=== PATIENT | female | born 1995 | race Caucasian/White ===

== ENCOUNTER 2019-08-26 09:36 | Outpatient (CLI) | payer MEDICAID ==
[2019-08-26 14:34] LABS: BASOPHILS # (AUTO) 0.1 10^3/uL (0.0-0.1); BASOPHILS % (AUTO) 0.9 %; EOSINOPHILS # (AUTO) 0.1 10^3/uL (0.0-0.7); HGB - HEMOGLOBIN 13.2 g/dL (12.0-16.0); LYMPHOCYTES # (AUTO) 1.4 10^3/uL (1.5-3.5); LYMPHOCYTES % (AUTO) 24.4 %; MEAN CORPUSCULAR HEMOGLOBIN 28.9 pg (27.0-31.0); MEAN CORPUSCULAR HGB CONC 33.2 g/dL (32.0-36.0); MEAN CORPUSCULAR VOLUME 87.1 fL (81.0-99.0); MEAN PLATELET VOLUME 12.2 fL (7.9-10.8); MONOCYTES # (AUTO) 0.4 10^3/uL (0.0-1.0); MONOCYTES % (AUTO) 6.1 %; NEUTROPHILS # (AUTO) 3.9 10^3/uL (1.5-6.6); NEUTROPHILS % (AUTO) 67.4 %; PLT - PLATELET COUNT 225 10^3/uL (130-450); RED BLOOD COUNT 4.57 10^6/uL (4.20-5.40); RED CELL DISTRIBUTION WIDTH 12.2 % (12.0-15.0); WHITE BLOOD COUNT 5.8 x10^3/uL (4.8-10.8)
[2019-08-26 15:05] LABS: ALBUMIN 4.3 g/dL (3.2-5.5); ALBUMIN/GLOBULIN RATIO 1.7 (1.0-2.2); BILIRUBIN,TOTAL 1.8 mg/dL (0.2-1.0); CALCIUM 8.9 mg/dL (8.5-10.3); CREATININE 0.6 mg/dL (0.4-1.0); TOTAL PROTEIN 6.9 g/dL (6.7-8.2)
[2019-08-26 15:16] LABS: THYROID STIMULATING HORMONE 0.87 uIU/mL (0.34-5.60)
[2019-08-26 15:18] LABS: FREE T4 (FREE THYROXINE) 0.98 ng/dL (0.58-1.64)
== END 2019-08-26 23:59 | disposition home or self-care (01) ==
LOC: LAB.WCP 09:36
PROVIDERS: ATTEND Physician Assistant
DX: Z00.00 Encounter for general adult medical examination without abnormal findings (principal); E05.90 Thyrotoxicosis, unspecified without thyrotoxic crisis or storm
CPT/HCPCS: 36415; 80053; 84439; 84443; 85025

== ENCOUNTER 2019-12-13 13:39 | Outpatient (CLI) | payer MEDICAID ==
--- NOTE | 2019-12-15 00:41 | Ultrasound Report ---
Reason: CHRONIC PELVIC PAIN Procedure Date: 12/13/2019 Accession Number: [id number] / [id number] Procedure: US - Pelvic w/Transvaginal CPT Code: Final Report FULL RESULT: EXAM: PELVIC ULTRASOUND EXAM DATE: 12/13/2019 03:30 PM. CLINICAL HISTORY: CHRONIC PELVIC PAIN. COMPARISON: None. TECHNIQUE: Realtime transabdominal pelvic scan performed to identify the uterus and adnexa and as an overview of other pelvic structures, followed by transvaginal scan to provide greater detail of the uterus and adnexa, with static image documentation. FINDINGS: Uterus: 7.1 x 3.1 x 4.0 cm, volume 45.5 cc. Anteverted position. Normal overall size and echotexture. Masses: None. Endometrium: Intrauterine device in place. Normal. Cervix: Unremarkable. Right Ovary: 2.9 x 2.9 x 3.0 cm, volume 13.4 cc. Normal echotexture and blood flow. Left Ovary: 3.1 x 2.6 x 1.8 cm, volume 7.5 cc. Normal echotexture and blood flow. Free Fluid: Small. Other: None. IMPRESSION: 1. Intrauterine device in satisfactory position. 2. Unremarkable sonographic appearance of uterus and ovaries. 3. Small free fluid in the pelvis, nonspecific although probably physiologic. RADIA
== END 2019-12-13 13:40 | disposition home or self-care (01) ==
LOC: DI 13:39
PROVIDERS: ATTEND Physician Assistant Medical
DX: R10.2 Pelvic and perineal pain (principal); G89.29 Other chronic pain; Z97.5 Presence of (intrauterine) contraceptive device
CPT/HCPCS: 76830; 76856

== ENCOUNTER 2020-02-05 07:44 | Outpatient (CLI) | payer MEDICAID ==
[2020-02-05 13:10] LABS: CALCIUM 8.8 mg/dL (8.5-10.3); CREATININE 0.6 mg/dL (0.4-1.0)
== END 2020-02-05 23:59 | disposition home or self-care (01) ==
LOC: LAB.WCP 07:44
PROVIDERS: ATTEND Physician Assistant
DX: Z79.899 Other long term (current) drug therapy (principal)
CPT/HCPCS: 36415; 80048

== ENCOUNTER 2020-02-11 16:01 | Outpatient (CLI) | payer MEDICAID ==
[2020-02-11 18:31] LABS: CALCIUM 9.3 mg/dL (8.5-10.3); CREATININE 0.7 mg/dL (0.4-1.0)
== END 2020-02-11 23:59 | disposition home or self-care (01) ==
LOC: LAB.WCP 16:01
PROVIDERS: ATTEND Physician Assistant
DX: Z79.899 Other long term (current) drug therapy (principal)
CPT/HCPCS: 36415; 80048

== ENCOUNTER 2020-02-25 09:20 | Outpatient (CLI) | payer MEDICAID | END 2020-02-25 23:59 | disposition home or self-care (01) | LOC: COV 09:20 | PROVIDERS: ATTEND Family Medicine | DX: R06.02 Shortness of breath (principal); M79.10 Myalgia, unspecified site; R53.83 Other fatigue; J02.9 Acute pharyngitis, unspecified; R09.81 Nasal congestion; R11.2 Nausea with vomiting, unspecified; Z20.828 Contact with and (suspected) exposure to other viral communicable diseases ==

== ENCOUNTER 2021-09-02 15:00 | Outpatient (CLI) | payer MEDICAID ==
--- NOTE | 2021-09-02 22:14 | XRAY Report ---
PROCEDURE: Ankle 3 View RT INDICATIONS: R ANKLE PX TECHNIQUE: 3 views of the ankle were acquired. COMPARISON: None FINDINGS: Bones: No fractures or dislocations. Ankle mortise is normally aligned. No suspicious bony lesions . Soft tissues: No tibiotalar joint effusion. Achilles tendon appears normal. IMPRESSION: No acute ankle fracture or dislocation. Intact ankle mortise. Mild lateral ankle soft ti ssue swelling. Reviewed by: Edy Barroso MD on 09/02/2021 10:12 PM PST Approved by: Edy Barroso MD on 09/02/2021 10:12 PM PST Station ID: [id number]
== END 2021-09-02 23:59 | disposition home or self-care (01) ==
LOC: DI.N 15:00
PROVIDERS: ATTEND Physician Assistant
DX: M25.571 Pain in right ankle and joints of right foot (principal); R93.6 Abnormal findings on diagnostic imaging of limbs; R93.89 Abnormal findings on diagnostic imaging of other specified body structures

== ENCOUNTER 2022-04-25 07:26 | Outpatient (CLI) | payer MEDICAID ==
[2022-04-25 12:53] LABS: BASOPHILS # (AUTO) 0.1 10^3/uL (0.0-0.1); BASOPHILS % (AUTO) 0.9 %; EOSINOPHILS # (AUTO) 0.1 10^3/uL (0.0-0.7); EOSINOPHILS % (AUTO) 1.6 %; HCT - HEMATOCRIT 43.7 % (37.0-47.0); HGB - HEMOGLOBIN 14.3 g/dL (12.0-16.0); LYMPHOCYTES # (AUTO) 1.4 10^3/uL (1.5-3.5); LYMPHOCYTES % (AUTO) 25.6 %; MEAN CORPUSCULAR HEMOGLOBIN 28.8 pg (27.0-31.0); MEAN CORPUSCULAR HGB CONC 32.7 g/dL (32.0-36.0); MEAN CORPUSCULAR VOLUME 88.1 fL (81.0-99.0); MEAN PLATELET VOLUME 12.3 fL (7.9-10.8); MONOCYTES # (AUTO) 0.4 10^3/uL (0.0-1.0); NEUTROPHILS # (AUTO) 3.6 10^3/uL (1.5-6.6); NEUTROPHILS % (AUTO) 64.7 %; PLT - PLATELET COUNT 248 10^3/uL (130-450); RED BLOOD COUNT 4.96 10^6/uL (4.20-5.40); RED CELL DISTRIBUTION WIDTH 12.3 % (12.0-15.0); WHITE BLOOD COUNT 5.5 x10^3/uL (4.8-10.8)
[2022-04-25 13:10] LABS: ALBUMIN 4.7 g/dL (3.2-5.5); ALBUMIN/GLOBULIN RATIO 1.8 (1.0-2.2); ALKALINE PHOSPHATASE 31 IU/L (42-121); ALT ALANINE AMINOTRANSFERASE 12 IU/L (10-60); AST ASPARTATE AMINOTRANSFERASE 12 IU/L (10-42); BUN - BLOOD UREA NITROGEN 14 mg/dL (6-20); CALCIUM 9.3 mg/dL (8.5-10.3); CARBON DIOXIDE - CO2 28 mmol/L (21-32); CHLORIDE 103 mmol/L (101-111); CHOL/HDL RATIO 2.5 (<4.4); CHOLESTEROL 132 mg/dL; CREATININE 0.8 mg/dL (0.4-1.0); GFR - MDRD 85 (>89); GLUCOSE 95 mg/dL (70-100); HDL CHOLESTEROL 52 mg/dL; POTASSIUM 3.9 mmol/L (3.5-5.0); SODIUM 138 mmol/L (135-145); TOTAL PROTEIN 7.3 g/dL (6.7-8.2); TRIGLYCERIDES 38 mg/dL
[2022-04-25 13:16] LABS: THYROID STIMULATING HORMONE 1.88 uIU/mL (0.34-5.60)
== END 2022-04-25 07:27 | disposition home or self-care (01) ==
LOC: LAB.N 07:26
PROVIDERS: ATTEND Nurse Practitioner Family
DX: Z00.00 Encounter for general adult medical examination without abnormal findings (principal); E55.9 Vitamin D deficiency, unspecified
CPT/HCPCS: 36415; 80053; 80061; 82306; 83721; 84443; 85025

== ENCOUNTER 2022-09-01 18:26 | Emergency (ER) | payer MEDICAID ==
[2022-09-01] MEDS ORDERED: ONDANSETRON ODT 4 MG TABLET TL STA (18:43)
[2022-09-01 18:56] LABS: BASOPHILS # (AUTO) 0.1 10^3/uL (0.0-0.1); BASOPHILS % (AUTO) 0.6 %; EOSINOPHILS # (AUTO) 0.1 10^3/uL (0.0-0.7); EOSINOPHILS % (AUTO) 1.2 %; HCT - HEMATOCRIT 39.1 % (37.0-47.0); HGB - HEMOGLOBIN 12.8 g/dL (12.0-16.0); LYMPHOCYTES % (AUTO) 25.1 %; MEAN CORPUSCULAR HEMOGLOBIN 28.8 pg (27.0-31.0); MEAN CORPUSCULAR HGB CONC 32.7 g/dL (32.0-36.0); MEAN CORPUSCULAR VOLUME 87.9 fL (81.0-99.0); MEAN PLATELET VOLUME 11.1 fL (7.9-10.8); MONOCYTES # (AUTO) 0.4 10^3/uL (0.0-1.0); MONOCYTES % (AUTO) 5.2 %; NEUTROPHILS # (AUTO) 5.3 10^3/uL (1.5-6.6); NEUTROPHILS % (AUTO) 67.6 %; PLT - PLATELET COUNT 219 10^3/uL (130-450); RED BLOOD COUNT 4.45 10^6/uL (4.20-5.40); RED CELL DISTRIBUTION WIDTH 11.9 % (12.0-15.0); WHITE BLOOD COUNT 7.8 x10^3/uL (4.8-10.8)
--- NOTE | 2022-09-01 18:58 | ED Physician Documentation ---
PD HPI ABD PAIN - Stated complaint Stated Complaint: ABD PX - Chief complaint Chief Complaint: Abd Pain - History obtained from History obtained from: Patient - History of Present Illness Timing - onset: Yesterday Timing - details: Gradual onset Quality: Aching, Dull, Pain Location: RLQ Associated symptoms: Nausea. No: Vomiting, Hematemesis, Diarrhea, Constipation, Melena, Hematochezia, Dysuria, Hematuria, Chest pain - Additional information Additional information: Patient is a 27-year-old female who presents to the emergency department with right lower quadrant abdominal pain that started yesterday and is continued today. Went to the walk-in clinic and was sent here for possible appendicitis. Has had nausea but no vomiting. Described as dull and aching. Decreased appetite. Worse with movement, better with remaining still. History of PCOS as well. She has an IUD in place. Negative hCG at the clinic today. Review of Systems Constitutional: denies: Fever, Chills Throat: denies: Sore throat Cardiac: denies: Chest pain / pressure Respiratory: denies: Cough GI: denies: Vomiting, Diarrhea, Hematemesis, Bloody / black stool : denies: Dysuria, Frequency, Hesitancy, Hematuria, Discharge, Now EGA Skin: denies: Rash Musculoskeletal: denies: Neck pain, Back pain Neurologic: denies: Headache PD PAST MEDICAL HISTORY - Past Medical History Past Medical History: Yes : Other (PCOS) Psych: ADD/ADHD - Present Medications Home Medications: Ambulatory Orders Medication Instructions Recorded Confirmed Propranolol [Inderal] 10 mg PO BID PRN 09/01/22 09/01/22 busPIRone [Buspar] 5 mg PO BID 09/01/22 09/01/22 - Allergies Allergies/Adverse Reactions: Allergies Allergy/AdvReac Type Severity Reaction Status Date / Time prednisone Allergy Hallucinati Verified 09/01/22 18:42 ons PD ED PE NORMAL - Vitals Vital signs reviewed: Yes - General General: Alert and oriented X 3, No acute distress - HEENT HEENT: Moist mucous membranes - Neck Neck: Supple, no meningeal sign - Cardiac Cardiac: RRR, No murmur - Respiratory Respiratory: No respiratory distress, Clear bilaterally - Abdomen Abdomen: Soft, Non distended, Other (Tender palpation right lower quadrant at McBurney's point. Positive Rovsing. Positive obturator) - Back Back: No CVA TTP, No spinal TTP - Derm Derm: Warm and dry - Extremities Extremities: No edema, No calf tenderness / cord - Neuro Neuro: Alert and oriented X 3 - Psych Psych: Normal mood, Normal affect Results - Vitals Vitals: Vital Signs - 24 hr 09/01/22 09/01/22 09/01/22 18:38 18:41 20:41 Temperature 36.7 C 36.7 C Heart Rate 64 64 84 Respiratory 16 16 16 Rate Blood Pressure 113/70 113/70 123/78 O2 Saturation 100 100 100 Oxygen O2 Source Room air - Labs Labs: Laboratory Tests 09/01/22 09/01/22 09/01/22 18:50 18:50 19:05 WBC 7.8 RBC 4.45 Hgb 12.8 Hct 39.1 MCV 87.9 MCH 28.8 MCHC 32.7 RDW 11.9 L Plt Count 219 MPV 11.1 H Neut # (Auto) 5.3 Lymph # (Auto) 2.0 [place] # (Auto) 0.4 Eos # (Auto) 0.1 Baso # (Auto) 0.1 Absolute Nucleated RBC 0.00 Nucleated RBC % 0.0 Sodium 137 Potassium 3.6 Chloride 102 Carbon Dioxide 26 Anion Gap 9.0 BUN 9 Creatinine 0.6 Estimated GFR (MDRD) 118 Glucose 104 H Calcium 8.9 Total Bilirubin 1.7 H AST 11 ALT 14 Alkaline Phosphatase 29 L Total Protein 6.9 Albumin 4.1 Globulin 2.8 Albumin/Globulin Ratio 1.5 Lipase 35 Urine Color YELLOW Urine Clarity CLEAR Urine pH 6.0 Ur Specific [place] <=1.005 Urine Protein NEGATIVE Urine Glucose (UA) NEGATIVE Urine Ketones NEGATIVE Urine Occult Blood NEGATIVE Urine Nitrite NEGATIVE Urine Bilirubin NEGATIVE Urine Urobilinogen 0.2 (NORMAL) Ur Leukocyte Esterase NEGATIVE Ur Microscopic Review NOT INDICATED Urine Culture Comments NOT INDICATED Urine HCG, Qual NEGATIVE - Rads (name of study) CT abdomen pelvis Radiology: Final report received, See rad report Pelvic ultrasound Radiology: Final report received, See rad report PD Medical Decision Making - ED course Complexity details: reviewed results, re-evaluated patient, considered differential, d/w patient, d/w fashion consultant sales ED course: 27-year-old female with 2 days of right lower quadrant abdominal pain. Normal CBC. Essentially normal CMP. Normal urinalysis. CT abdomen pelvis reveals normal appendix, but a large right-sided ovarian cyst, 6 x 6 cm. Pelvic ultrasound was ordered. Discussed with Dr. Pugh, gynecology on-call, results reviewed and he will follow-up with the patient in the office. Pain well controlled here. Patient is well-appearing, nontoxic. Afebrile. Patient will be signed out to Dr. Bazzi, awaiting ultrasound results. Plan will be to discharge the patient home if no torsion. Departure - Departure Clinical Impression: Ovarian cyst Qualifiers: Laterality: right Qualified Code(s): N83.201 - Unspecified ovarian cyst, right side Condition: Good Instructions: ED Cyst Ovarian Follow-Up: Luiz Pugh MD [Provider Admit Priv/Credential] - [facility] [Provider Group] - Within 1 week Comments: You have a 6 cm right ovarian cyst. Please follow-up with gynecology for further care. Please call their office for an appointment. I discussed your case with Dr. Pugh, on-call gynecologyjessica.
[2022-09-01 19:22] LABS: ALBUMIN 4.1 g/dL (3.2-5.5); ALBUMIN/GLOBULIN RATIO 1.5 (1.0-2.2); BILIRUBIN,TOTAL 1.7 mg/dL (0.2-1.0); CALCIUM 8.9 mg/dL (8.5-10.3); CREATININE 0.6 mg/dL (0.4-1.0); POTASSIUM 3.6 mmol/L (3.5-5.0); TOTAL PROTEIN 6.9 g/dL (6.7-8.2)
[2022-09-01 19:27] LABS: BILIRUBIN,URINE NEGATIVE (NEGATIVE); GLUCOSE, URINE (UA) NEGATIVE (NEGATIVE); KETONES,URINE (UA) NEGATIVE (NEGATIVE); LEUKOCYTE ESTERASE, URINE NEGATIVE (NEGATIVE); NITRITE,URINE NEGATIVE (NEGATIVE); OCCULT BLOOD,URINE NEGATIVE (NEGATIVE); PROTEIN,URINE NEGATIVE (NEGATIVE); UROBILINOGEN,URINE 0.2 (NORMAL) E.U./dL (NORMAL)
[2022-09-01] MEDS ORDERED: iohexoL-300 100 ML VIAL ONE (19:28)
[2022-09-01 19:29] LABS: CLARITY,URINE CLEAR (CLEAR); HCG UR QUAL NEGATIVE
[2022-09-01] MEDS ORDERED: iohexoL-300 100 ML VIAL IVP ONE (20:14)
--- NOTE | 2022-09-01 20:16 | CT Report ---
PROCEDURE: ABDOMEN/PELVIS W INDICATIONS: RLQ abd pain CONTRAST: 100mL Omni 300 TECHNIQUE: After the administration of IV contrast, 5 mm thick sections acquired from the diaphragms to the symp hysis. 5 mm thick coronal and sagittal reformats were acquired. For radiation dose reduction, the f ollowing was used: automated exposure control, adjustment of mA and/or kV according to patient size. COMPARISON: None. FINDINGS: Image quality: Excellent. ABDOMEN: Lung bases: Lung bases are clear. Heart size is normal. Solid organs: There is hepatomegaly, no discrete hepatic lesion. Spleen is normal in size. Calcified granuloma is noted in spleen. No discrete solid appearing lytic lesion. Gallbladder is within normal limits. Biliary system is non dilated. Pancreas enhances normally. No adrenal nodules. Kidneys de monstrate normal size and enhancement, without hydronephrosis. Peritoneum and bowel: Bowel loops demonstrate normal wall thickness and caliber. No free fluid or a ir. Appendix is visualized and is within normal limits. Nodes and vessels: No retroperitoneal or mesenteric adenopathy by size criteria. Aorta and inferior vena cava are normal in size. Miscellaneous: No ventral hernias. PELVIS: Genitourinary: Bladder wall thickness is normal. Miscellaneous: No inguinal hernias or adenopathy. 5.8 x 5.4 cm cystic structure is noted in right a dnexa. Intrauterine device is noted within its central endometrial location. No gross abnormality is seen in left ovary. Bones: No suspicious bony lesions. No vertebral body compression fractures. IMPRESSION: 1. Normal appendix. No bowel obstruction or abnormal bowel wall thickening. No free fluid of free air . 2. Large cystic structure in right adnexa measures up to 5.8 x 5.4 x 5.8 cm in size concerning for la rge right ovarian cyst. HEATING TECHNICIAN correlation is recommended. If indicated, pelvic ultrasound can be done f or further evaluation. 3. No renal stones or hydronephrosis. No hydroureter. Reviewed by: Edy Barajas MD on 09/01/2022 8:14 PM PST Approved by: Edy Barajas MD on 09/01/2022 8:14 PM PST Station ID: [id number]
[2022-09-01] MEDS ORDERED: oxyCODONE 5 MG TABLET PO STA (20:44)
[2022-09-01] MEDS ORDERED: KETOROLAC 30 MG/ML VIAL IVP STA (20:44)
[2022-09-01 22:06] VITALS: BP 111/61
--- NOTE | 2022-09-01 23:56 | Ultrasound Report ---
PROCEDURE: Pelvic w/Transvag+Doppler Comp INDICATIONS: pelvic pain, R ovarian cyst TECHNIQUE: Real-time scanning was performed of the pelvic organs, with image documentation. Additional endovagi nal scanning was necessary due to incomplete visualization of the adnexal and endometrial structures by transabdominal scanning. Doppler interrogation was performed of the ovaries bilaterally. COMPARISON: Ultrasound pelvis 12/13/2019. Concurrent CT of the abdomen and pelvis.. FINDINGS: No pathologic free abdominal or pelvic fluid. Uterus: Uterus measures 6.8 x 3.5 x 4.8 cm. Endometrium measures up to 0.6 cm. An IUD is demonstrate d in appropriate position within the fundal endometrium. There is a cyst in the right Ovaries: Right ovary measures 7.9 x 6 x 6.7 cm for volume of 166 mL and the left ovary measures 2.7 x 1.8 x 2.2 cm for volume of 5.5 mL. There is an anechoic cyst within the right ovary measuring up to approximately 5.9 x 4.9 x 5.8 cm. No discrete adnexal mass identified . IMPRESSION: 1. Anechoic cyst in the right ovary is nonspecific. Consider short-term and 6 week follow-up to demon strate resolution given its size. 2. Otherwise, no acute sonographic abnormality in the pelvis. Reviewed by: Tito Skinner MD on 09/02/2022 12:05 AM PST Approved by: Tito Skinner MD on 09/02/2022 12:05 AM PST Station ID: [id number]
== END 2022-09-01 22:52 | disposition home or self-care (01) ==
LOC: ED 18:26
DX: N83.201 Unspecified ovarian cyst, right side (principal)
CPT/HCPCS: 36415; 74177; 76830; 76856; 80053; 81003; 81025; 83690; 85025; 93975; 96374; 99283; 99284; A9270; Q0162; Q9967; 81001; 87086

== ENCOUNTER 2022-09-27 08:18 | Day surgery (SDC) | payer MEDICAID ==
[2022-09-27] MEDS ORDERED: GABAPENTIN 400 MG CAPSULE ONE (08:19)
[2022-09-27] MEDS ORDERED: ACETAMINOPHEN 500 MG TABLET PO ONE (08:19)
[2022-09-27] MEDS ORDERED: CELECOXIB 100 MG CAPSULE PO ONE (08:20)
[2022-09-27] MEDS ORDERED: LACTATED RINGERS 1,000 ML IV ONE ×2 (08:48→11:18)
[2022-09-27 09:15] LABS: HCG UR QUAL NEGATIVE
--- NOTE | 2022-09-27 09:19 | ANESTHESIA ---
Pre-Anesthesia VS, & Labs - Diagnosis right ovarian cyst - Procedure laparoscopic ovarian cystectomy Vital Signs: Temp Pulse Resp BP Pulse Ox O2 Flow Rate 37.1 C 61 11 L 114/65 100 09/27/22 08:45 09/27/22 08:45 09/27/22 08:45 09/27/22 08:45 09/27/22 08:45 Height: 5 ft 10 in Weight (kg): 70 kg Body Mass Index: 22.1 BMI Classification: Normal - NPO >8 hours - Is Patient ?: No - Lab Results Current Lab Results: Laboratory Tests 09/27/22 08:41: POC Whole Bld Glucose 85 Lab results reviewed: Yes Home Medications and Allergies Propranolol [Inderal] 10 mg PO BID PRN 09/01/22 busPIRone [Buspar] 5 mg PO BID 09/01/22 Allergies/Adverse Reactions: Allergies Allergy/AdvReac Type Severity Reaction Status Date / Time prednisone Allergy Hallucinati Verified 09/01/22 18:42 ons Anes History & Medical History - Anesthetic History Anesthesia Complications: reports: No previous complications - Medical History Cardiovascular: reports: None Pulmonary: reports: Asthma Gastrointestinal: reports: None Urinary: reports: None Neuro: reports: None Musculoskeletal: reports: None Endocrine/Autoimmune: reports: None Blood Disorders: reports: None Skin: reports: None Smoking Status: Current every day smoker (vapes) Psychosocial: reports: Cannabis (daily) History of Cancer?: No - Surgical History Other Past Surgical History: facial surgery as a child from trauma Exam General: Alert, Oriented x3, Cooperative, No acute distress Dental: TMJ (jaw pops, has not gotten stuck) Mouth Openin Fingerbreadth Neck Mobility: Normal Mallampati classification: I Thyromental Distance: 4-6 cm Mental/Cognitive Status: Alert/Oriented X3, Normal for patient Plan Anesthesia Type: General Consent for Procedure(s) Verified and Reviewed: Yes Code Status: Attempt Resuscitation ASA classification: 2-Mild systemic disease Is this case an emergency?: No
[2022-09-27] MEDS ORDERED: LIDOCAINE MPF 2%-EPI 1:200000 20 ML VIAL ONE (09:22)
[2022-09-27] MEDS ORDERED: BUPIVACAINE 0.5% PF 30 ML VIAL ONE (09:23)
[2022-09-27] MEDS ORDERED: METHYLENE BLUE 0.5% 50 MG/10 ML AMPULE ONE (09:23)
[2022-09-27] MEDS ORDERED: fentaNYL 100 MCG/2 ML VIAL ONE ×2 (09:33→10:27)
[2022-09-27] MEDS ORDERED: MIDAZOLAM 2 MG/2 ML VIAL ONE (09:33)
[2022-09-27] MEDS ORDERED: PROPOFOL 200 MG/20 ML VIAL IVP ONE (09:33)
[2022-09-27] MEDS ORDERED: ROCURONIUM 50 MG/5 ML VIAL ONE ×2 (09:33→10:30)
[2022-09-27] MEDS ORDERED: NALOXONE 0.4 MG/ML VIAL IVP PRN (09:41)
[2022-09-27] MEDS ORDERED: ATROPINE ABBOJECT 1 MG/10 ML SYRINGE IVP PRN (09:41)
[2022-09-27] MEDS ORDERED: MORPHINE 2 MG/ML CARPUJECT IVP PRN (09:41)
[2022-09-27] MEDS ORDERED: fentaNYL 100 MCG/2 ML VIAL IVP PRN (09:41)
[2022-09-27] MEDS ORDERED: ONDANSETRON 4 MG/2 ML VIAL IVP PRN (09:41)
[2022-09-27] MEDS ORDERED: HYDROmorphone 0.5 MG/0.5 ML SYRINGE IVP PRN (09:41)
[2022-09-27] MEDS ORDERED: LACTATED RINGERS 1,000 ML IV SCH (10:00)
[2022-09-27] MEDS ORDERED: LIDOCAINE MPF 2%-EPI 1:200000 20 ML VIAL SUBQ ONE ×2 (10:34)
[2022-09-27] MEDS ORDERED: BUPIVACAINE 0.5% PF 30 ML VIAL SUBQ ONE ×2 (10:34)
[2022-09-27] MEDS ORDERED: GLYCOPYRROLATE 1 MG/5 ML VIAL ONE (11:02)
[2022-09-27] MEDS ORDERED: NEOSTIGMINE 1 MG/1 ML 10 ML MDV ONE (11:02)
--- NOTE | 2022-09-27 11:18 | OPERATIVE REPORT ---
Operative Report - General Procedure Date: 09/27/22 Planned Procedure: Laparoscopic right ovarian cystectomy Pre-Op Diagnosis: Right ovarian cyst Procedure Performed: Laparoscopic right ovarian cystectomy Post Op Diagnosis: Right ovarian cyst - Procedure Note Primary Surgeon: Luiz Pugh MD Secondary Surgeon: Marilu Ingram DO Anesthesia Provider: Iris Hahn Anesthesia Technique: General ET tube Pathology: Right ovarian cyst wall IV Fluids (mL): 1,400 Estimated Blood Loss (mL): 10 Urine Output (mL): 50 Complications: None - Other Other Information/Narrative: Patient was taken to the OR and placed in the dorsal lithotomy position using great white stirrups after adequate anesthesia was obtained. Patient was prepped and draped in the usual fashion. A bivalve speculum was used to visualize the cervix and a uterine manipulator was placed. 2 mL of 0.25% Marcaine was used below the umbilicus. An 11 blade scalpel was used to incise the skin. A Veress needle was used to into the abdomen using a 45 degree angle into the umbilicus. The syringe was drawn back to ensure proper placement and a hanging drop test was performed. Low flow was then initiated to ensure abdominal position. After adequate pressure was noted, high flow was initiated. After the abdomen was insufflated, the umbilical trocar was placed under direct visualization. Similar to the left and the right lower quadrant ports were placed under direct visualization similar to the umbilical port. Examination of the pelvis showed a right ovarian cyst. Left ovary noted a smaller, likely physiologic cyst. The ovary was elevated using a blunt grasper, then laparoscopic levon were used to incise the cyst. As attempting to open the cyst, the cyst ruptured and was suctioned and the pelvis was copiously irrigated. The cyst cavity was then opened further, and the cyst wall was grasped with a grasper and using countertraction against the ovarian tissue, the cyst wall was removed from the cyst cavity and sent to pathology. The ovary and pelvis were again arranged and noted hemostasis. The abdomen was reviewed for hemostasis, and a healthy-appearing liver was noted. The trocars were then removed, and abdomen was evacuated of gas. The trocar sites were then closed with a 4-0 Monocryl in a sub-cuticular fashion and covered with Dermabond. Patient was taken to the PACU in stable condition. I appreciate the assistance of Dr. Ingram during this procedure, and the assistance in retraction, visualization, dissection, and overall assistance during the case were instrumental to the patient's wellbeing.
[2022-09-27 12:47] VITALS: BP 113/71
--- NOTE | 2022-09-27 18:55 | ANESTHESIA POST OP EVALUATION ---
Anesthesia Post Eval - Post Anesthesia Eval Vitals: Last Vital Signs Temp 37.3 C 09/27/22 12:46 Pulse 61 09/27/22 12:46 Resp 14 09/27/22 12:46 BP 113/71 09/27/22 12:46 Pulse Ox 100 09/27/22 12:46 O2 Flow Rate CV Function Including HR & BP: Stable Pain Control: Satisfactory Nausea & Vomiting: Negative Mental Status: Baseline Respiratory Status: Airway Patent Hydration Status: Satisfactory Anesthesia Complications: None
== END 2022-09-27 08:19 | disposition home or self-care (01) ==
LOC: SDS 08:18
PROVIDERS: ATTEND Obstetrics & Gynecology
PROC: 0UB04ZZ Excision of Right Ovary, Percutaneous Endoscopic Approach (ICD-10-PCS; principal; 2022-09-27 09:45)
DX: N83.291 Other ovarian cyst, right side (principal); F17.290 Nicotine dependence, other tobacco product, uncomplicated
CPT/HCPCS: 36415; 58662; 81025; 86850; 86900; 86901; A9270; J7120

== ENCOUNTER 2022-11-29 15:04 | Emergency (ER) | payer MEDICAID ==
[2022-11-29] MEDS ORDERED: SUMAtriptan 6 MG/0.5 ML VIAL SUBQ STA (16:13)
--- NOTE | 2022-11-29 16:15 | ED Physician Documentation ---
PD HPI HEAD INJURY - Stated complaint Stated Complaint: HEAD INJURY, DIZZY - Chief complaint Chief Complaint: Trauma Hd/Nk - History obtained from History obtained from: Patient - History of Present Illness Mechanism of head injury: Other (boxes weighing about 10lbs fell on her head today at work.) Pain level max: 7 Pain level now: 5 Location of injury: Top Quality of pain: Pain, Aching, Dull Associated symptoms: No: LOC, AMS, Amnesia, Nausea / vomiting, Neck pain, Paresthesias, Seizures, Ear drainage, Nasal drainage Symptoms improve with: Rest Symptoms worsen with: Light, Noise Contributing factors: No: Anticoagulated, Intoxicated Recently seen: Not recently seen - Additional information Additional information: 27-year-old female presents to the emergency department stating that she was at work today when several boxes fell off of a shelf onto her head. No loss of consciousness. No vomiting. No seizure activity. Denies any possibility of . She does have a history of migraine headaches and this does feel similar. Has not taken anything for this. No mental status changes. Review of Systems Constitutional: denies: Fever, Chills Respiratory: denies: Cough GI: denies: Abdominal Pain, Vomiting, Diarrhea : denies: Dysuria, Frequency, Hesitancy, Now EGA Musculoskeletal: denies: Neck pain, Back pain Neurologic: reports: Headache, Head injury. denies: Syncope, Seizure, Confused, Altered mental status, LOC PD PAST MEDICAL HISTORY - Past Medical History Cardiovascular: None Respiratory: Asthma Neuro: None Endocrine/Autoimmune: None GI: None : None HEENT: None Psych: Anxiety, ADD/ADHD, Post traumatic stress disorder Musculoskeletal: None Derm: None - Present Medications Home Medications: Ambulatory Orders Medication Instructions Recorded Confirmed Propranolol [Inderal] 10 mg PO BID PRN 09/01/22 09/27/22 busPIRone [Buspar] 5 mg PO BID 09/01/22 09/27/22 - Allergies Allergies/Adverse Reactions: Allergies Allergy/AdvReac Type Severity Reaction Status Date / Time prednisone Allergy Hallucinati Verified 11/29/22 15:08 ons - Social History Smoking Status: Current every day smoker (vapes) PD ED PE NORMAL - Vitals Vital signs reviewed: Yes - General General: Alert and oriented X 3, No acute distress - HEENT HEENT: Atraumatic, PERRL, EOMI, Ears normal, Moist mucous membranes, Pharynx benign - Neck Neck: Supple, no meningeal sign, No bony TTP - Cardiac Cardiac: RRR, Strong equal pulses - Respiratory Respiratory: No respiratory distress, Clear bilaterally - Abdomen Abdomen: Soft, Non tender, Non distended - Back Back: No CVA TTP, No spinal TTP - Derm Derm: Warm and dry - Extremities Extremities: Normal ROM s pain - Neuro Neuro: Alert and oriented X 3, movie operator 2-12 intact, No motor deficit, No sensory deficit, Normal speech Eye Opening: Spontaneous Motor: Obeys Commands Verbal: Oriented GCS Score: 15 - Psych Psych: Normal mood, Normal affect Results - Vitals Vitals: Vital Signs - 24 hr 11/29/22 11/29/22 15:08 16:27 Temperature 36.5 C Heart Rate 70 149 H Respiratory 16 16 Rate Blood Pressure 150/78 H 149/76 H O2 Saturation 99 99 Oxygen O2 Source Room air PD Medical Decision Making - ED course Complexity details: reviewed results, re-evaluated patient, considered differential, d/w patient ED course: Patient is well-appearing, nontoxic. Afebrile. No evidence of skull fracture or intracranial hemorrhage that would require intervention. Appears to have a mild concussion versus migraine headache. Given Imitrex. Feels better. GCS 15. Normal neurological exam. Head injury instructions given at bedside. No high risk features. Patient counseled regarding signs and symptoms for which I believe and urgent re-evaluation would be necessary. Patient with good understanding of and agreement to plan and is comfortable going home at this time This document was made in part using voice recognition software. While efforts are made to proofread this document, sound alike and grammatical errors may occur. L&I paperwork filled out Departure - Departure Disposition: 01 Home, Self Care Clinical Impression: Closed head injury Qualifiers: Encounter type: initial encounter Qualified Code(s): S09.90XA - Unspecified injury of head, initial encounter Migraine Qualifiers: Migraine type: unspecified Status migrainosus presence: without status migrainosus Intractability: not intractable Qualified Code(s): G43.909 - Migrain e, unspecified, not intractable, without status migrainosus Condition: Good Instructions: ED Head Injury Closed, ED Headache Migraine Follow-Up: Judith Chi ARNP [Primary Care Provider] - As Needed Comments: Please follow-up with your doctor for further care. Please return if you worsen. Please return for worsening headaches, vomiting, seizure activity or other new or worrisome symptoms. You were given Imitrex today for the headache. Forms: Activity restrictions Discharge Date/Time: 11/29/22 16:29
[2022-11-29 16:29] VITALS: BP 149/76
== END 2022-11-29 16:29 | disposition home or self-care (01) ==
LOC: ED 15:04
DX: S09.90XA Unspecified injury of head, initial encounter (principal); G43.909 Migraine, unspecified, not intractable, without status migrainosus; W20.8XXA Other cause of strike by thrown, projected or falling object, initial encounter; Y99.0 Civilian activity done for income or pay
CPT/HCPCS: 96372; 99283

== ENCOUNTER 2023-01-16 09:41 | Outpatient (CLI) | payer MEDICAID ==
[2023-01-16 12:26] LABS: BASOPHILS # (AUTO) 0.1 10^3/uL (0.0-0.1); EOSINOPHILS # (AUTO) 0.1 10^3/uL (0.0-0.7); EOSINOPHILS % (AUTO) 1.1 %; HCT - HEMATOCRIT 41.3 % (37.0-47.0); HGB - HEMOGLOBIN 13.9 g/dL (12.0-16.0); LYMPHOCYTES # (AUTO) 1.7 10^3/uL (1.5-3.5); LYMPHOCYTES % (AUTO) 27.7 %; MEAN CORPUSCULAR HEMOGLOBIN 29.1 pg (27.0-31.0); MEAN CORPUSCULAR HGB CONC 33.7 g/dL (32.0-36.0); MEAN CORPUSCULAR VOLUME 86.6 fL (81.0-99.0); MEAN PLATELET VOLUME 12.1 fL (7.9-10.8); MONOCYTES # (AUTO) 0.4 10^3/uL (0.0-1.0); MONOCYTES % (AUTO) 6.2 %; NEUTROPHILS % (AUTO) 63.8 %; PLT - PLATELET COUNT 259 10^3/uL (130-450); RED BLOOD COUNT 4.77 10^6/uL (4.20-5.40); RED CELL DISTRIBUTION WIDTH 12.2 % (12.0-15.0); WHITE BLOOD COUNT 6.3 x10^3/uL (4.8-10.8)
[2023-01-16 12:42] LABS: ALBUMIN 4.5 g/dL (3.2-5.5); ALBUMIN/GLOBULIN RATIO 1.4 (1.0-2.2); ALKALINE PHOSPHATASE 37 IU/L (42-121); ALT ALANINE AMINOTRANSFERASE 11 IU/L (10-60); AST ASPARTATE AMINOTRANSFERASE 12 IU/L (10-42); BILIRUBIN,TOTAL 1.9 mg/dL (0.2-1.0); BUN - BLOOD UREA NITROGEN 10 mg/dL (6-20); CALCIUM 9.1 mg/dL (8.5-10.3); CARBON DIOXIDE - CO2 27 mmol/L (21-32); CHLORIDE 107 mmol/L (101-111); CHOL/HDL RATIO 2.5 (<4.4); CHOLESTEROL 116 mg/dL; CREATININE 0.8 mg/dL (0.4-1.0); GFR - MDRD 85 (>89); GLUCOSE 102 mg/dL (70-100); HDL CHOLESTEROL 47 mg/dL; LDL CHOLESTEROL,CALCULATED 59 mg/dL; LDL/HDL RATIO 1.3 (<4.4); POTASSIUM 4.3 mmol/L (3.5-5.0); SODIUM 139 mmol/L (135-145); TOTAL PROTEIN 7.7 g/dL (6.7-8.2); TRIGLYCERIDES 49 mg/dL; VLDL CHOLESTEROL 10 mg/dL
[2023-01-16 12:52] LABS: THYROID STIMULATING HORMONE 0.83 uIU/mL (0.34-5.60)
== END 2023-01-16 09:42 | disposition home or self-care (01) ==
LOC: LAB.N 09:41
PROVIDERS: ATTEND Nurse Practitioner Family
DX: R53.83 Other fatigue (principal)
CPT/HCPCS: 36415; 80053; 80061; 83721; 84443; 85025